=== PATIENT | male | born 1955 | race Caucasian/White ===

== ENCOUNTER 2019-07-20 09:51 | Outpatient (CLI) | payer OTHER ==
--- NOTE | 2019-07-20 15:24 | MRI ---
MR OF THE PELVIS WITH AND WITHOUT CONTRAST INDICATION: Prostate Cancer COMPARISON: None TECHNIQUE: Multiplanar, multisequence MR images were obtained of the pelvis with and without IV contr ast. 20 cc of MultiHance was utilized for the examination. The examination was reviewed on a separate [employer] 3-D workstation for multiplanar metric evaluation. FINDINGS: Prostate size: The prostate measured 5.5 x 3.8 x 3.6cm. 35.46 cc. Peripheral zone: No area of restricted diffusion is seen within the peripheral zone. There is T1 hype rintensity seen within the lateral right mid and right apical peripheral zone suspicious for residual hemorrhage from prior biopsy. This can limit evaluation for peripheral zone lesions on the d iffusion weighted imaging. Central zone: No suspicious signal abnormality or focal lesion. Neural vasculature: No evidence of neurovascular invasion Regional lymphadenopathy: None Dynamic contrast enhancement: Negative. Osseous structures: No suspicious osseous lesion is identified. Additional findings: There are bilateral fat-containing inguinal hernias. There is wall thickening in volving the bladder which may reflect a component of chronic bladder outlet obstruction.. IMPRESSION: 1. PIRADS 2- Low (clinically significant cancer is unlikely to be present.) 2. Some limitations to the exam as above. 3. Wall thickening involving the bladder may reflect sequela of chronic bladder outlet obstruction; h owever, component of cystitis is not excluded. Recommend correlation with the clinical examination and laboratory values if clinically indicated.
== END 2019-07-20 09:52 | disposition home or self-care (01) ==
LOC: TBSIIMAG 09:51
PROVIDERS: ATTEND Urology
DX: C61 Malignant neoplasm of prostate (principal); N32.89 Other specified disorders of bladder
CPT/HCPCS: 72197; 82565

== ENCOUNTER 2025-05-21 09:40 | Outpatient (CLI) | payer MEDICARE, OTHER ==
[2025-05-21 10:44] LABS: Estimated GFR - POC 65.0
== END 2025-05-21 09:41 | disposition home or self-care (01) ==
LOC: SCSMRI 09:40
PROVIDERS: ATTEND Urology
DX: C61 Malignant neoplasm of prostate (principal)
CPT/HCPCS: 36415; 72197; 82565